=== PATIENT | female | born 1955 | race Caucasian/White ===

== ENCOUNTER → 2018-01-20 | Day surgery (SDC) | payer BC, OTHER ==
[~2018-01-20] MED LIST: BUPIVAC MPF-EPI 0.5%-1:200000 30 ML VIAL. ONE; BUPIVACAINE MPF 0.25% 30 ML VIAL. ONE; LISI10TA2 PO; VALA10005 PO
[2018-01-20 11:47] VITALS: BP 133/87
--- NOTE | 2018-01-20 11:47 | PDOC4 ---
Operative Report DATE 01/20/2018 Preop Diagnosis Left neck mass Post-op Diagnosis Same Operation Performed Excision of left neck mass Patient is a 60-year-old female with a enlarging mass of her left neck ultrasound showed mass consistent with lipoma. Procedure of excision was explained to the patient detail was benefits were also discussed including bleeding infection alternatives to this procedure also discussed with the patient seemed understanding gave both verbal and written consent had procedure performed. Patient was taken to the minor was room placed on her right lateral decubitus positioning her neck was prepped and draped usual sterile fashion using ChloraPrep. Asked was injected with half percent Marcaine with epinephrine once this completely anesthetized and incision was made 15 blade scalpel was carried down through the subtendinous tissue to the mass which was sharply excised with tenotomy scissors. Mass sizes approximately 3 x 3 cm and sent for pathology. Wound was then closed in a single layer running 4-0 subcuticular Monocryl Mastisol Steri-Strips and 4 x 4 were applied as dressings. She tolerated procedure well was discharged home in stable condition Surgeon David ANESTHESIA PROPOSED: LOCAL Blood Loss 5 mL Specimen Left neck mass Complications None ALEKSANDRA MOSHER MD Jan 20, 2018 11:47
--- NOTE | 2018-01-20 11:48 | DISCH ---
DISCHARGE INSTRUCTIONS-DC Condition on Discharge Condition on Discharge: Stable Activity after Discharge Activity Instructions for Disc: No restrictions Diet after Discharge Diet Texture: Regular Wound/Incision Care Other wound/incision instructi: Bernice shower in 24 hours Contacting the DRClari after DC Call your doctor for: If your condition worsens Follow-Up Follow up with: Dr. Mosher in 2 weeks ALEKSANDRA MOSHER MD Jan 20, 2018 11:48
--- NOTE | 2018-01-23 10:09 | PATHOLOGY ---
[facility] Accession Number: [id number] . 01 Material submitted: . NECK MASS . 01 Clinical history: . Neck mass . 02 Diagnosis: Segment of fibroadipose tissue, neck mass removal: - Lipoma. [facility]/01/22/2018 . 02 Comment: There is no evidence of malignancy. . (JPM:mm; 01/22/18) . 02 Electronically signed: . Wing Hurt MD, Pathologist NPI- [id number] . 01 Gross description: . The specimen is received in formalin, labeled "Gonsalves Janiceharris and no specimen designation on the container and as per requisition neck mass", is a 2.5 x 2.0 x 0.8 cm roughly oval yellow lobulated soft tissue partially covered by a carmona-white membrane. Sectioning shows a glistening, yellow homogeneous cut surface with no discrete hemorrhage or necrosis. [employer] sections are submitted in A1. ([facility]; 01/20/2018) [facility] . 02 Pathologist provided ICD-10: D17.79 . 02 CPT . 811763 Performed at: 01 [facility] [address] [id number] MD Sergo Reza MD Phone: [phone] Performed at: 02 [facility] [address] [place], [place] [id number] MD Wing Hurt MD Phone: [phone]
== END | disposition home or self-care (01) ==
LOC: SURG 10:03
PROVIDERS: ATTEND Surgery
DX: D17.0 Benign lipomatous neoplasm of skin and subcutaneous tissue of head, face and neck (principal); Z88.1 Allergy status to other antibiotic agents; Z91.048 Other nonmedicinal substance allergy status; I10 Essential (primary) hypertension; Z79.899 Other long term (current) drug therapy; M85.80 Other specified disorders of bone density and structure, unspecified site; D50.9 Iron deficiency anemia, unspecified; M19.90 Unspecified osteoarthritis, unspecified site; Z90.49 Acquired absence of other specified parts of digestive tract; Z90.710 Acquired absence of both cervix and uterus; Z80.0 Family history of malignant neoplasm of digestive organs; Z83.3 Family history of diabetes mellitus; Z80.49 Family history of malignant neoplasm of other genital organs; Z72.89 Other problems related to lifestyle
CPT/HCPCS: 21555; 88304; J3490

== ENCOUNTER → 2021-05-04 | Outpatient (CLI) | payer BC, MEDICARE, OTHER ==
[2018-01-20 11:47] VITALS: BP 133/87
[~2021-05-04] MED LIST changes: -BUPIVAC MPF-EPI 0.5%-1:200000 30 ML VIAL. ONE; -BUPIVACAINE MPF 0.25% 30 ML VIAL. ONE; +LISI10TA16 PO; -LISI10TA2 PO
--- NOTE | 2021-05-06 16:59 | RAD ---
US RENAL BILAT History: Reason: GROSS HEMATURIA / Spl. Instructions: / History: Comparison: None. Procedure: Transabdominal ultrasound images are obtained of the kidneys and bladder. Findings: Right kidney: measures 10.5 x 4.9 x 4.0 cm. Right renal cyst measures 1.4 cm. No follow-up imaging i s recommended per consensus recommendations based on imaging criteria. No hydronephrosis. Left kidney: measures 10.9 x 5.1 x 5.0 cm. Large calculus within the renal pelvis measures 2.5 cm. M oderate left hydronephrosis. Urinary bladder: Decompressed urinary bladder. The IVC is normal caliber. The visualized abdominal aorta is normal caliber. IMPRESSION: 1. Moderate left hydronephrosis with large calculus in the renal pelvis. CT can further evaluate if clinically indicated. Electronically signed by: Shoaib Stevens DO (05/06/2021 4:57 PM) [facility]
== END ==
LOC: US 15:44
PROVIDERS: ATTEND Physician Assistant Medical
DX: N20.0 Calculus of kidney (principal); N28.1 Cyst of kidney, acquired; R31.9 Hematuria, unspecified; N13.30 Unspecified hydronephrosis
CPT/HCPCS: 76770

== ENCOUNTER → 2021-06-18 | Outpatient (CLI) | payer BC, MEDICARE, OTHER ==
[2018-01-20 11:47] VITALS: BP 133/87
== END ==
LOC: LAB 13:43
PROVIDERS: ATTEND Urology
DX: R30.0 Dysuria (principal)
CPT/HCPCS: 87086